=== PATIENT | male | born 1965 | race Caucasian/White ===

== ENCOUNTER 2016-10-25 05:29 | Emergency (ER) | payer OTHER ==
[~2016-10-25] VITALS: Ht 172.7 cm; Wt 98.0 kg
[~2016-10-25 05:29] MED LIST: CLIN-73 PO; DOCU-144 PO; HC30CR25 TOP; HYDR25SU24 PR; IBUP-1542 PO; LIDO30JE5 TOP; ULT50 PO
[2016-10-25 05:40] VITALS: Ht 172.7 cm; Wt 98.0 kg
[2016-10-25] MEDS ORDERED: AZIT250T94 PO (06:33)
[2016-10-25] MEDS ORDERED: IBUP800T25 PO (06:34)
[2016-10-25] MEDS ORDERED: ACET500C5 PO (06:34)
[2016-10-25] MEDS ORDERED: GUAI120011 PO (06:35)
--- NOTE | 2016-10-25 06:41 | ERD ---
ER Documentation Chief Complaint Date/Time DATE: 10/25/16 TIME: 06:38 Chief Complaint sore throat x 1 week HPI This 51-year-old male who presents to emergency department today complaining of sore throat and head congestion for the past week. Patient's visit last week he had a head cold and it seemed to improve a little bit and now it is worse for the past 5 days. Decrease his daughter has strep throat. This isn't taking TheraFlu. Denies any fevers or chills. ROS All systems reviewed and are negative except as per history of present illness. Medications Home Meds Active Scripts Guaifenesin (Mucinex) 1,200 Mg Tab.er.12h, 1200 MG PO DAILY for 7 Days, TAB Prov:SRINIVAS ARAYA PA-C 10/25/16 Acetaminophen* (Tylophen*) 500 Mg Capsule, 1 CAP PO Q6H Y for PAIN AND OR ELEVATED TEMP, #30 CAP Prov:SRINIVAS ARAYA PA-C 10/25/16 Ibuprofen* (Motrin*) 800 Mg Tab, 800 MG PO Q6, #30 TAB Prov:SRINIVAS ARAYA PA-C 10/25/16 Azithromycin* (Zithromax*) 250 Mg Tablet, 250 MG PO .ZPACK DIRECTED, #6 TAB TAKE 500 MG (2 TABS) THE FIRST DAY THEN 250 MG (1 TAB) DAYS 2-5 Prov:SRINIVAS ARAYA PA-C 10/25/16 Tramadol HCl (Tramadol HCl) 50 Mg Tablet, 50 MG PO Q6 Y for PAIN, #20 TAB Prov:PARAMJIT GOETZ NP 11/05/15 Ibuprofen* (Motrin*) 600 Mg Tab, 600 MG PO Q6H Y for PAIN AND OR ELEVATED TEMP, #30 TAB Prov:PARAMJIT GOETZ NP 11/05/15 Docusate Sodium* (Colace*) 100 Mg Capsule, 100 MG PO BID, #60 CAP Prov:PARAMJIT GOETZ NP 11/05/15 Hydrocortisone Acetate* (Anusol-HC*) 25 Mg/Supp.rect Supp.rect, 1 SUPP PA HS, # 12 SUPP.RECT Prov:PARAMJIT GOETZ NP 11/05/15 Clindamycin Hcl* (Clindamycin Hcl*) 300 Mg Capsule, 450 MG PO TID for 10 Days, CAP Prov:TIBURCIO HERNANDEZ [employer] 07/18/15 Lidocaine 2% Jelly* (Xylocaine 2% Jelly*) 1 Applic Jel, 1 APPLIC TOP TID, #60 TUB Prov:JACQUE ALTMAN PA-C 07/14/15 Hydrocortisone* Topical (Hydrocortisone* Topical) 2.5%-28.3 Gm Cream..g., 1 APPLIC TOP BID, #1 TUB Prov:JACQUE ALTMAN PA-C 07/14/15 Allergies Allergies: Coded Allergies: No Known Allergy (Unverified , 10/25/16) PMhx/Soc History of Surgery: No Anesthesia Reaction: No Hx Neurological Disorder: No Hx Respiratory Disorders: No Hx Cardiac Disorders: No Hx Psychiatric Problems: No Hx Miscellaneous Medical Probl: Yes (hemorrhoids) Hx Alcohol Use: Yes (occasssional) Hx Substance Use: No Hx Tobacco Use: No Physical Exam Vitals Vital Signs Date Time Temp Pulse Resp B/P Pulse Ox O2 Delivery O2 Flow Rate FiO2 10/25/16 05:40 97.2 74 20 138/85 98 Physical Exam Const: No acute distress Head: Atraumatic Eyes: Normal Conjunctiva ENT: Ears TMs normal. Nose with bilateral mucous. Throat with erythema no tonsillar exudate. Neck: Full range of motion..~ No meningismus. Resp: Clear to auscultation bilaterally Cardio: Regular rate and rhythm, no murmurs Abd: Soft, non tender, non distended. Normal bowel sounds Skin: No petechiae or rashes Neur: Awake and alert Psych: Normal Mood and Affect Procedures/MDM This 51-year-old male presents to emergency department today complaining of head congestion sore throat for the past week. Patient has been supposed to strep pharyngitis or his daughter. Patient does not have any tonsillar exudates however he is denying any cough and I will treat the patient for possible strep pharyngitis versus sinusitis. I discussed the patient with Dr. Leyva and recommendation was to give the patient azithromycin to cover for both strep and possible sinusitis. Patient is afebrile and otherwise well appearing. I have low suspicion for peritonsillar abscess, pneumonia, otitis media, retropharyngeal abscess, sepsis or severe bacterial infection. Do not feel the patient requires further laboratory workup or imaging. Patient be given a prescription for azithromycin, Tylenol, Motrin and Mucinex. At this time the patient is stable for discharge and outpatient management. Patient should follow up with their PCP in the next 1-2 days. They may return to the emergency department sooner for any persistent or worsening of symptoms. Patient understood and agreed with the plan. Departure Diagnosis: Primary Impression: Sore throat Condition: Fair Patient Instructions: Self-Care for Sore Throats, Pharyngitis, Strep (Presumed) Referrals: your PCP Additional Instructions: Call your primary care doctor TOMORROW for an appointment during the next 1-2 days.See the doctor sooner or return here if your condition worsens before your appointment time. Antibiotics as prescribed Take Tylenol or Motrin for fever or sore throat Mucinex for sinus congestion SRINIVAS ARAYA PA-C Oct 25, 2016 06:40
== END 2016-10-25 07:10 | disposition home or self-care (01) ==
LOC: FTE 05:29
DX: J02.9 Acute pharyngitis, unspecified (principal)
CPT/HCPCS: 99283